=== PATIENT | female | born 1965 ===

== ENCOUNTER 2022-06-05 11:36 | Outpatient (CLI) | payer OTHER | END 2022-06-05 11:37 | disposition home or self-care (01) | LOC: RAD 11:36 | DX: K59.01 Slow transit constipation (principal) ==

== ENCOUNTER 2025-04-29 16:27 | Emergency (ER) | payer OTHER ==
[~2025-04-29] VITALS: Ht 157.5 cm; Wt 49.4 kg
[2025-04-29 16:35] VITALS: BP 138/87; O2SAT 99
[2025-04-29] MEDS ORDERED: LIPITOR40 M1 PO (16:39)
[2025-04-29] MEDS ORDERED: KAPSPARGO SPRIN25 MG (16:39)
[2025-04-29] MEDS ORDERED: MIRALAX17 GM (16:40)
[2025-04-29] MEDS ORDERED: 0.9 % SODIUM CHLORIDE 1,000 ML IV ONE (17:15)
[2025-04-29 17:37] LABS: BASO % 0.6 % (0.1-1.2); EOS # 0.09 (0.04-0.54); EOS % 1.2 % (0.7-7.0); LYMPH # 1.16 (1.18-3.74); LYMPH % 16.1 % (19.3-53.1); MEAN PLATELET VOLUME 10.10 fl (9.4-12.4); MONO # 0.59 (0.24-0.82); MONO % 8.2 % (4.7-12.5); NEUT # 5.32 (1.56-6.13); NEUT % 73.6 % (34.0-71.1); RED CELL DISTRIBUTION WIDTH 13.6 % (11.6-14.4)
[2025-04-29 17:58] LABS: INR 0.99
[2025-04-29 18:05] LABS: ALT/SGPT 26.0 U/L (12-78); AST/SGOT 25.0 U/L (15-37); BILIRUBIN TOTAL 0.78 mg/dL (0.3-1.2); BUN CREA RATIO 18.0 (7.0-25.0); CREATININE SERUM 0.78 mg/dL (0.55-1.02); GFR 75.85; GLOBULINA 3.2 G/DL (2.4-3.5); GLUCOSE FASTING 122.0 mg/dL (65-100); OSMOLALITY SERUM 287.0 MOSM/KG (275-295)
[2025-04-29 18:08] LABS: URINE APPEARANCE Cloudy; URINE BILIRRUBIN Negative (NEGATIVE); URINE BLOOD Moderate; URINE COLOR Yellow; URINE GLUCOSE Negative (NEGATIVE); URINE KETONE 15 (NEGATIVE); URINE LEUKOCYTE Negative; URINE NITRATE Negative; URINE UROBILINOGEN 0.2 E.U./dl
[2025-04-29 18:37] LABS: URINE BACTERIA 53.9 uL (0.0-1933); URINE CAST 5.13 uL (0.0-1.40); URINE EPITHELIAL CELLS 7.2 uL (0.0-38.8); URINE RBC 24.3 uL (0.0-20.8); URINE WBC 32.6 uL (0.0-23.2)
[2025-04-29 18:56] LABS: URINE PROTEIN 100 (NEGATIVE)
== END 2025-04-29 20:41 | disposition home or self-care (01) ==
LOC: ER 16:27
PROVIDERS: General Practice
DX: I95.9 Hypotension, unspecified (principal); Z88.1 Allergy status to other antibiotic agents; Z88.2 Allergy status to sulfonamides
CPT/HCPCS: 36415; 70450; 71045; 74176; 93005; 96365; 96366; 99284; J7030